=== PATIENT | female | born 1985 | race Caucasian/White ===

== ENCOUNTER 2022-10-30 06:39 | Inpatient (IN) | payer MEDICAID ==
[~2022-10-30] VITALS: Ht 149.9 cm; Wt 67.6 kg
[2022-10-30] MEDS ORDERED: LR 1,000 ML IV SCH (07:45)
[2022-10-30] MEDS ORDERED: NALBUPHINE HCL 10 MG/ML AMP IM PRN (07:45)
[2022-10-30] MEDS ORDERED: OXYTOCIN/0.9 % SODIUM CHLORIDE 1,000 ML IV SCH (07:45)
[2022-10-30] MEDS ORDERED: TERBUTALINE SULFATE 1 MG/ML VIAL SUBCUT ONE (07:45)
[2022-10-30 07:57] VITALS: BP_SYST 111
[2022-10-30] MEDS ORDERED: FLU VACC QS2022-23(6MOS UP)/PF 0.5 ML/SYR SYRINGE I.M. PRN (08:00)
[2022-10-30 08:24] LABS: BASOPHILS # (AUTO) 0.1 K/uL (0.0-0.2); BASOPHILS % (AUTO) 1.3 % (0.0-2.0); EOSINOPHILS # (AUTO) 0.1 K/uL (0.0-0.4); EOSINOPHILS % (AUTO) 0.6 % (0.0-4.0); LYMPHOCYTES # (AUTO) 2.5 K/uL (1.0-5.5); LYMPHOCYTES % (AUTO) 25.9 % (20.5-51.5); MEAN CORPUSCULAR HEMOGLOBIN 28 pg (27-31); MEAN CORPUSCULAR HGB CONC 33 % (32-36); MEAN CORPUSCULAR VOLUME 82 fL (79.0-98.0); MONOCYTES # (AUTO) 0.7 K/uL (0.0-1.0); MONOCYTES % (AUTO) 7.6 % (1.7-9.3); NEUTROPHILS # (AUTO) 6.3 K/uL (1.8-7.7); NEUTROPHILS % (AUTO) 64.6 % (40.0-70.0); PLATELET COUNT (AUTO) 266 K/uL (130-430); RED BLOOD CELL COUNT(AUTO) 4.37 MIL/uL (4.2-6.2); RED CELL DISTRIBUTION WIDTH 14.4 % (9.0-15.0); WHITE BLOOD COUNT (AUTO) 9.7 K/uL (4.8-10.8)
--- NOTE | 2022-10-30 10:00 | NUR ---
Quality Intern re: advance directive In to see patient at bedside to discuss recent consult for an Advance Directive. I introduces myself and explained why I was there visiting. The patient was open and engaging and agreed to talk with my. She was not in active labor and did not appear to be in distress. I explained the Advance Directive. She accepted the document and I advised her that she could take a look through it at a later time. Prior to leaving, I completed an assessment with the patient. The patient states she lives at home with her and their 5 children. This will be her 7th baby, which is also her rainbow baby. Her children range from 15 years old down to 4 years old. The patient states her is her biggest support. 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 Starting today, the will be on paternity leave himself. The mother states she had a small intimate baby shower and has all of the provisions in place for the baby. The mother appeared excited about her family unit, and states the children at home are excited and keep calling and texting to see if the baby is here. During conversation, the mother was happy and tired. i inquired about her mental health and if she felt overwhelmed or had any concerns with bringing the new baby home. The mother states she is only nervous about pushing the baby out, and gets anxious about that process. I advised the mother that she will have the nurses and her present to guide her through the process. I finally inquired about any resources or services that she may need from social work nurse, and she indicated there was nothing needed at this time. MEENAKSHI Anthony came in prior to me leaving. I advised her why I was visiting the patient, at which point he indicted the entry may have been wrong, but that she will correct the code if need be. I referenced the document that i left and advised that the information can still be used for informational purposes as well.
[2022-10-30] MEDS ORDERED: LIDOCAINE PF 1% 30ML(POUR BTL) INJ ONE (14:40)
[2022-10-30] MEDS ORDERED: LIGHT MINERAL OIL 10 ML VIAL MC ONE (14:40)
[2022-10-30] MEDS ORDERED: NALOXONE HCL 0.4 MG/ML AMP (NARCAN) ONE (14:40)
[2022-10-30] MEDS ORDERED: METHYLERGONOVINE MALEATE 0.2 MG/ML AMP ONE (15:48)
[2022-10-30] MEDS ORDERED: METHYLERGONOVINE MALEATE 0.2 MG/ML AMP IM ONE (16:15)
[2022-10-30] MEDS ORDERED: LIDOCAINE 1% 10 MG/ML, 20 ML MDV INJ ONE (16:15)
[2022-10-30] MEDS ORDERED: LANOLIN 7 GM OINT. TP PRN (16:30)
[2022-10-30] MEDS ORDERED: WITCH HAZEL LEAF 1 MED.PAD MED.PAD TP PRN (16:30)
[2022-10-30] MEDS ORDERED: DIPHTH,PERTUSS(ACELL),TET VAC 0.5 ML VIAL (Tdap) I.M. PRN (16:30)
[2022-10-30] MEDS ORDERED: DERMOPLAST SPRAY TP PRN (16:30)
[2022-10-30] MEDS: IBUPROFEN 600 MG TABLET PO SCH ×2 (17:50→23:50)
[2022-10-30 21:00] VITALS: BP_SYST 123
[2022-10-31] MEDS: IBUPROFEN 600 MG TABLET PO SCH ×4 (06:34→23:44)
[2022-10-31 07:20] LABS: HEMATOCRIT 32.9 % (36-48); HEMOGLOBIN 11.1 g/dL (12.0-16.0)
[2022-10-31] MEDS: DOCUSATE SODIUM 100 MG CAPSULE PO SCH (09:12)
[2022-11-01] MEDS: IBUPROFEN 600 MG TABLET PO SCH ×2 (06:31→12:26)
[2022-11-01] MEDS: DOCUSATE SODIUM 100 MG CAPSULE PO SCH (08:55)
== END 2022-11-01 16:46 | disposition home or self-care (01) | DRG 560 ==
LOC: SPU 06:39
PROVIDERS: ADMIT Obstetrics & Gynecology; ATTEND Obstetrics & Gynecology
PROC: 10E0XZZ Delivery of Products of Conception, External Approach (ICD-10-PCS; principal; 2022-10-30)
DX: O80 Encounter for full-term uncomplicated delivery (principal); Z37.0 Single live birth; Z20.822 Contact with and (suspected) exposure to COVID-19; Z3A.37 37 weeks gestation of pregnancy
CPT/HCPCS: 36415; 81002; 85018; 85025; 86592; 86886; 86900; 86901; J2001; J2210; J2300; J2310; J2590